=== PATIENT | male | born 1945 | race Caucasian/White ===

== ENCOUNTER 2018-11-05 13:17 | Inpatient (IN) | payer MEDICARE, BC ==
--- NOTE | 2018-11-05 14:00 | ED ---
Respiratory - HPI Summary HPI Summary: This patient is a 73 year old M presenting to [facility] with a chief complaint of cold symptoms since 10/31/18. Patient reports body aches, difficulty sleeping, productive cough with yellow mucous, sneezing, dyspnea, LE aching, and subjective fever. Patient denies CP and LE swelling. Per the triage note, the patient rates the pain 2/10 in severity. He has not had a flu shot this year. No PMHx of asthma. He has not smoked for decades and is retired. He is not on any medications. PCP is Dr. River Bruner. - History of Current Complaint Chief Complaint: EDUpperRespComplaint Stated Complaint: CHEST CONGESTION PER PT Time Seen by Provider: 11/05/18 13:33 Hx Obtained From: Patient Onset/Duration: Sudden Onset, Lasting Days, Still Present Current Severity: Mild Pain Intensity: 2 Character: Cough (Productive), Dyspnea at Rest Sputum Color: Yellow Associated Signs and Symptoms: Fever - Subjective, Chest Pain - Denies, Edema - Denies, Dyspnea - Allergy/Home Medications Allergies/Adverse Reactions: Allergies Allergy/AdvReac Type Severity Reaction Status Date / Time No Known Allergies Allergy Verified 11/05/18 13:19 Home Medications: Home Medications Elderberry Fruit and Flower [Black Elderberry 575 mg] 1 cap PO DAILY 11/05/18 [ History Confirmed 11/05/18] Garlic [Odor Free Garlic-X] 1 tab PO DAILY 11/05/18 [History Confirmed 11/05/18] Multivitamins/Minerals TAB* [Theragran/minerals TAB*] 1 tab PO DAILY 11/05/18 [ History Confirmed 11/05/18] Vitamin B Complex CAP* [B Complex CAP*] 1 cap PO DAILY 11/05/18 [History Confirmed 11/05/18] Zinc 25 mg PO DAILY 11/05/18 [History Confirmed 11/05/18] PMH/Surg Hx/FS Hx/Imm Hx Respiratory History: Denies: Hx Asthma Musculoskeletal History: Reports: Other Musculoskeletal History - Carpal tunnel - Surgical History Surgery Procedure, Year, and Place: N/A Infectious Disease History: No Infectious Disease History: Denies: Traveled Outside the [place] in Last 30 Days - Family History Known Family History: Positive: Cardiac Disease, Diabetes - Social History Occupation: Retired Alcohol Use: None Substance Use Type: Reports: None Smoking Status (MU): Former Smoker Review of Systems Positive: Fever, Other - Difficulty sleeping. Negative: Chills Negative: Erythema Negative: Sore Throat Negative: Chest Pain Positive: Cough - Productive yellow mucous, Other - Sneezing, dyspnea. Negative : Shortness Of Breath Negative: Abdominal Pain, Vomiting, Nausea Negative: dysuria, hematuria Positive: Other - Body aches, LE aching. Negative: Myalgia, Edema Negative: Rash Neurological: Other - Denies dizziness All Other Systems Reviewed And Are Negative: Yes Physical Exam - Summary Physical Exam Summary: Constitutional: Well-developed, Well-nourished, Alert. (-) Distressed Skin: Warm, Dry HENT: Normocephalic; Atraumatic Eyes: Conjunctiva normal Neck: Musculoskeletal ROM normal neck. (-) JVD, (-) Stridor, (-) Tracheal deviation Cardio: Rhythm regular, rate normal, Heart sounds normal; Intact distal pulses; The pedal pulses are 2+ and symmetric. Radial pulses are 2+ and symmetric. (-) Murmur Pulmonary/Chest wall: Grossly diminished breath sounds with scattered rhonchi. ( -) Respiratory distress, (-) Wheezes, (-) Rales Abd: Soft, (-) tenderness, (-) Distension, (-) Guarding, (-) Rebound Musculoskeletal: (-) Edema Lymph: (-) Cervical adenopathy Neuro: Alert, Oriented x3 Psych: Mood and affect Normal Triage Information Reviewed: Yes Vital Signs On Initial Exam: Initial Vitals Temp Pulse Resp BP Pulse Ox 99.1 F 88 20 121/82 90 11/05/18 13:20 11/05/18 13:20 11/05/18 13:20 11/05/18 13:20 11/05/18 13:20 Vital Signs Reviewed: Yes Diagnostics - Vital Signs Vital Signs Temp Pulse Resp BP Pulse Ox 11/05/18 13:20 99.1 F 88 20 121/82 90 - Laboratory Result Diagrams: 11/05/18 13:45 11/05/18 13:45 Lab Statement: Any lab studies that have been ordered have been reviewed, and results considered in the medical decision making process. - Radiology Chest X-Ray Radiology Interpretation Completed By: Radiologist Summary of Radiographic Findings: 14:06 - LEFT LOWER LUNG CONSOLIDATION. RECOMMEND FOLLOW-UP UNTIL RESOLUTION TO EXCLUDE. UNDERLYING PULMONARY PARENCHYMAL PATHOLOGY. ED Physician has reviewed this imaging report. - EKG 13:58 Cardiac Rate: NL - 89 BPM EKG Rhythm: Sinus Rhythm Summary of EKG Findings: No STEMI Re-Evaluation - Re-Evaluation 1 Re-Evaluation Time: 15:22 Change: Unchanged Comment: No change. Patient is still at 90% O2 while on 2 L O2. Disposition - Diagnoses Provider Diagnoses: PNA (pneumonia), Sepsis, Hypoxemia - Critical Care Time Critical Care Time: 30-74 min - 35 mins Discharge - Sign-Out/Discharge Documenting (check all that apply): Patient Departure - D/C home Patient Received Moderate/Deep Sedation with Procedure: No - Discharge Plan Condition: Stable Disposition: ADMITTED TO [facility] Referrals: Zohreh MARTINEZ,River Gale [Primary Care Provider] - - Attestation Statements Document Initiated by Scribe: Yes Documenting Scribe: Joseph Cordoba Provider For Whom Scribe is Documenting (Include Credential): Dav Barber MD Scribe Attestation: Joseph Diallo, scribed for Dav Barber MD on 11/05/18 at 1535. Status of Scribe Document: Ready
[2018-11-05] MEDS ORDERED: methylPREDNISolone 125 MG* 2 ML VIAL IV ONE (14:13)
[2018-11-05] MEDS ORDERED: Albuterol/Ipratropium NEB.SOL* Albuterol 2.5 MG/Ipratropium 0.5 MG 3 ML INH ONE (14:13)
[2018-11-05 14:15] LABS: ABS Lymphocytes 0.8 10^3/ul (1.0-4.8); ABS Monocytes 0.7 10^3/ul (0-0.8); ABS Neutrophils 6.2 10^3/ul (1.5-7.7); Hematocrit 43 % (42-52); Hemoglobin 14.6 g/dL (14.0-18.0); Lymphocyte % 10.6 %; Mean Corpuscular HGB Conc 34 g/dL (31-36); Mean Corpuscular Hemoglobin 31 pg (27-31); Mean Corpuscular Volume 92 fL (80-94); Mean Platelet Volume 8.5 fL (7.4-10.4); Nucleated Red Blood Cells % 0.1; Platelet Count 165 10^3/uL (150-450); Red Blood Count 4.68 10^6 /uL (4.18-5.48); Red Cell Distribution Width 13 % (10.5-15); White Blood Count 7.7 10^3/uL (3.5-10.8)
[2018-11-05] MEDS ORDERED: cefTRIAXone(*) 1 GM in NS 0.9% 50 ML* 50 ML IVPB ONE (14:23)
[2018-11-05 14:24] LABS: INR 1.33 (0.82-1.09)
[2018-11-05 14:32] LABS: Troponin I 0.02 ng/mL (<0.04)
[2018-11-05 14:41] LABS: Albumin 4.1 g/dL (3.2-5.2); Albumin/Globulin Ratio 1.2 (1-3); BUN/Creatinine Ratio 21.7 (8-20); Calcium 10.6 mg/dL (8.6-10.3); EGFR African American 75.9 (>60); EGFR Non-African American 62.7 (>60); Globulin 3.3 g/dL (2-4); Potassium 4.3 mmol/L (3.5-5.0); Total Bilirubin 0.7 mg/dL (0.2-1.0); Total Protein 7.4 g/dL (6.4-8.9)
[2018-11-05 14:47] LABS: Influenza A Molecular NEGATIVE (Negative); Influenza B Molecular NEGATIVE (Negative)
[2018-11-05] MEDS ORDERED: NS 0.9% 1000 ML** 2,000 ML IV ONE (16:43)
[2018-11-05] MEDS ORDERED: Azithromycin 500 mg/250 ml NS 500 MG/250 ML BAG IVPB ONE (16:43)
[2018-11-05] MEDS ORDERED: Albuterol 2.5 MG/3 ML NEB.SOL* (0.083%) INH PRN (16:48)
[2018-11-05] MEDS ORDERED: Acetaminophen TAB* 325 MG PO PRN (16:48)
[2018-11-05] MEDS ORDERED: Iohexol 350* (CONTRAST) 500 ML MDV IV ONE (16:52)
[2018-11-05] MEDS: Enoxaparin(*) 40 MG/0.4 ML SYR SUBCUT SCH (21:39)
[2018-11-05] MEDS: NS 0.9% 1000 ML** 1,000 ML IV SCH (21:39)
[2018-11-05 22:05] LABS: Urine Appearance Clear; Urine Bilirubin Negative (Negative); Urine Blood Negative (Negative); Urine Color Yellow; Urine Glucose 1+(50 mg/dL) (Negative); Urine Ketones Negative (Negative); Urine Nitrite Negative (Negative); Urine Protein Negative (Negative); Urine Specific Gravity 1.016 (1.010-1.030); Urine Urobilinogen Negative (Negative)
--- NOTE | 2018-11-06 01:27 | PN ---
Progress Note - Progress Note Date of Service: 11/06/18 Note: pt's urine positive for strep pneumo antigen. will cont current antibiotics for now
--- NOTE | 2018-11-06 02:08 | HP ---
CC: Dr. River Bruner.* HISTORY AND PHYSICAL: DATE OF ADMISSION: 11/05/18 PROVIDER: Laya Hines NP PRIMARY CARE PROVIDER: Dr. River Bruner. ATTENDING PHYSICIAN WHILE IN THE HOSPITAL: Janelle Hernandez DO * (dictated by Laya Hines NP) CHIEF COMPLAINT: Cough and shortness of breath. HISTORY OF PRESENT ILLNESS: Mr. Santana is a 73-year-old male with no significant past medical history other than hepatitis C, which was treated and resolved, who reports that he started coughing on Thursday. On Thursday, he developed fevers and felt weak. He reports that he has had a productive cough with yellow secretions. The patient reports that he became progressively more short of breath and his cough became worse. So, he went to the Urgent Care today and was found to have a room air O2 saturation of 85%. So, he was sent to the emergency room for further evaluation. The patient does report fevers. He denies any intended weight loss. He does complain of chest feeling tight with taking deep breaths. Denies any edema. Does report cough. Denies any hemoptysis. He does report shortness of breath, progressively worse with exertion. Denies any nausea, vomiting, diarrhea, abdominal pain, hematuria, dysuria, focal weakness, or sensory loss. Denies any visual complaints. Denies any dysphagia, arthralgias. He does report muscle and joint aches and feeling weak and fatigued. Denies any rashes, lesions, psychosis, or anxiety. Due to his hypoxia and chest x-ray consistent with pneumonia, we were asked to see and evaluate the patient for admission. PAST MEDICAL HISTORY: History of hepatitis C, did receive treatment. PAST SURGICAL HISTORY: 1. Carpal tunnel release. 2. Tonsillectomy. MEDICATIONS: None. ALLERGIES: No known drug allergies. FAMILY HISTORY: Reviewed and noncontributory. SOCIAL HISTORY: The patient quit smoking approximately 40 years ago. Prior to that, he smoked a pack a day for approximately 10 years. He denies any alcohol or illicit drug use. He is . He lives with his . Surrogate decision maker in the event he is unable to make his own decisions is his . He is a full code. REVIEW OF SYSTEMS: A 11-point review of systems was completed. All pertinent positives were mentioned in the HPI, others were negative. PHYSICAL EXAMINATION GENERAL: At this time, Mr. Santana is a 73-year-old male, he is resting on a stretcher in the emergency room, he does not appear to be in any acute distress. VITAL SIGNS: Blood pressure 119/83, heart rate is 98, respirations are 24, O2 saturation 91% on 4 L nasal cannula, temperature is 99.1. HEENT: Head is atraumatic, normocephalic. Eyes: EOMs are intact. Sclerae anicteric and not pale. Oral mucosa appeared to be moist. NECK: Supple. LUNGS: Very diminished throughout bilaterally. CARDIAC: S1, S2. Regular rate and rhythm. No murmurs, rubs, or gallops. ABDOMEN: Soft and nontender. Bowel sounds are present x4. EXTREMITIES: He can move all 4 extremities with 5/5 strength. Pedal pulses are +2 bilaterally. There is no clubbing or cyanosis. NEUROLOGIC: He is awake, alert, oriented x3. His speech is clear. Thought process is intact. There are no gross focal deficits. Cranial nerves II through XII are grossly intact. PSYCH: The patient is alert and oriented x4. He is calm and cooperative. SKIN: Intact. LABORATORY DATA AND DIAGNOSTIC STUDIES: WBCs were 7.7, RBCs 4.68, hemoglobin 14.6, hematocrit was 43, platelet count was 165. INR was 1.33. APTT was 33.0. ABG: pH was 7.48, pCO2 was 32, pO2 was 69. HCO3 was 25.5. Oxygen saturation was 95.1. Sodium 128, potassium 4.3, chloride 95, carbon dioxide was 25, anion gap was 8, BUN was 25, creatinine 1.15, glucose was 108. Lactic acid was 1.4 and 1.11. Calcium 10.6. ASTs were 22, ALTs were 14. Urine was within normal limits except for +1 glucose. Flu A and B were negative. He had a chest x-ray, radiologist's impression: Left lower lobe consolidation, recommend followup until resolution. He had an electrocardiogram, which showed sinus rhythm at a rate of 89. His CTA of the chest, radiologist's impression: No pulmonary embolism, no dissection or aneurysm in the chest, dependent consolidation in both lower lobes suggesting pneumonia or aspiration, limited calcification or pleural plaque, no other acute disease seen. ASSESSMENT AND PLAN: Mr. Santana is a 73-year-old male with no significant past medical history, who presented to the emergency room with complaints of shortness of breath, cough, and fevers, who was found to have bilateral pneumonia. He will be admitted inpatient for: 1. He meets sepsis criteria. I suspect this is related to underlying pneumonia. His sepsis criteria is met by tachypnea and tachycardia with a known source of pneumonia. He did have blood cultures in the emergency room. He did receive a fluid bolus. I will continue him on normal saline at 100 cc per hour. He will have azithromycin and ceftriaxone IV. He also received Solu- Medrol 125 mg in the emergency room. I will continue with albuterol nebs as needed for shortness of breath. 2. Acute hypoxemic respiratory failure. I suspect this is related to underlying pneumonia. The patient will continue on oxygen support to maintain O2 saturations greater than 92%. I will continue him on azithromycin and ceftriaxone. Blood cultures are currently pending. I will send urine for Legionella and Strep pneumoniae. He will be monitored on telemetry. 3. Hyponatremia. I suspect his hyponatremia is related to dehydration. He did receive normal saline bolus in the emergency room. I will repeat a BMP in the a.m. 4. FEN. He can have a regular diet. 5. Code status. He is a full code. 6. DVT prophylaxis. I will place him on Lovenox subcu. TIME SPENT: Time spent on this admission was approximately 60 minutes, greater than half that time was spent at the bedside reviewing events leading thus far to his hospitalization, performing physical exam, and reviewing my plan of care. I have discussed this with my attending, Dr. Janelle Hernandez; she is in agreement with my plan. LAYA HINES, TEST ENGINE OPERATOR [id number]/[facility] #: [id number] JONATAN
[2018-11-06] MEDS: Multivitamins/Minerals TAB PO SCH (07:54)
[2018-11-06] MEDS: NS 0.9% 1000 ML** 1,000 ML IV SCH ×2 (07:56→19:31)
[2018-11-06 08:53] LABS: ABS Lymphocytes 0.5 10^3/ul (1.0-4.8); ABS Monocytes 0.6 10^3/ul (0-0.8); ABS Neutrophils 6.7 10^3/ul (1.5-7.7); Hematocrit 36 % (42-52); Hemoglobin 12.2 g/dL (14.0-18.0); Lymphocyte % 6.6 %; Mean Corpuscular HGB Conc 33 g/dL (31-36); Mean Corpuscular Hemoglobin 31 pg (27-31); Mean Corpuscular Volume 93 fL (80-94); Mean Platelet Volume 8.8 fL (7.4-10.4); Platelet Count 161 10^3/uL (150-450); Red Blood Count 3.93 10^6 /uL (4.18-5.48); Red Cell Distribution Width 13 % (10.5-15); White Blood Count 7.8 10^3/uL (3.5-10.8)
[2018-11-06 09:03] LABS: BUN/Creatinine Ratio 20.9 (8-20); Calcium 9.7 mg/dL (8.6-10.3); EGFR African American 99.4 (>60); EGFR Non-African American 82.1 (>60); Potassium 4.5 mmol/L (3.5-5.0)
--- NOTE | 2018-11-06 14:08 | PN ---
Subjective Date of Service: 11/06/18 Interval History: Pt seen and examined. Meds and labs reviewed. CC: N/A ROS: Denied MCCAULEY/dizziness, F/C, N/V, CP, SOB, increased cough, sputum production , abd pain, diarrhea, constipation, dysuria, myalgias, arthralgias, throat pain , and new skin lesions. The rest of the 14 point ROS are unremarkable. PHYSICAL EXAM: GEN APPEARANCE: Awake, not in acute distress HEENT: NC/AT, PERRLA, moist oral mucosa, (-) throat erythema NECK: Soft, supple, (-) cervical LAD, (-)JVD HEART: S1S2 WNL, RRR, No MRG CHEST: CTA, BL, GAE, No W/R/R ABD: Soft, ND/NT, NABS 4x Q EXT: No C/C/E SKIN: Warm to touch PSYCH: No active psychosis, hallucinations, depression, SI/HI Objective Active Medications: Acetaminophen (Tylenol Tab*) 650 mg PO Q4H PRN PRN Reason: FEVER/PAIN Albuterol (Ventolin 2.5 Mg/3 Ml Neb.Katie*) 2.5 mg INH [id number] AWAKE PRN PRN Reason: sob/wheezing Enoxaparin Sodium (Lovenox(*)) 40 mg SUBCUT Q24H [facility] Last Admin: 11/05/18 21:39 Dose: 40 mg Sodium Chloride (Ns 0.9% 1000 Ml) 1,000 mls @ 100 mls/hr IV PER RATE [facility] Last Admin: 11/06/18 07:56 Dose: 100 mls/hr Azithromycin (Zithromax 500 Mg/250 Ml) 500 mg in 250 mls @ 250 mls/hr IVPB Q24H [facility] Ceftriaxone Sodium 1 gm/ (Sodium Chloride) 50 mls @ 200 mls/hr IVPB Q24H [facility] Multivitamins/Minerals (Theragran/Minerals Tab*) 1 tab PO DAILY [facility] Last Admin: 11/06/18 07:54 Dose: 1 tab Vital Signs - 8 hr 11/06/18 11/06/18 11/06/18 08:00 08:06 08:15 Temperature 97.5 F Pulse Rate 69 Respiratory 20 20 Rate Blood Pressure 117/67 (mmHg) O2 Sat by Pulse 94 94 Oximetry 11/06/18 12:10 Temperature 97.6 F Pulse Rate 65 Respiratory 20 Rate Blood Pressure 106/66 (mmHg) O2 Sat by Pulse 97 Oximetry Oxygen Devices in Use Now: Nasal Cannula Result Diagrams: 11/06/18 08:14 11/06/18 08:14 Microbiology and Other Data: Microbiology 11/05/18 21:50 Legionella Urinary Antigen - Final Urine Negative Legionella Antigen Streptococcus pneumoniae Ag Screen - Final Positive S. Pneumo Antigen Assess/Plan/Problems-Billing Assessment: - Patient Problems (1) CAP (community acquired pneumonia) Current Visit: Yes Status: Acute Code(s): J18.9 - PNEUMONIA, UNSPECIFIED ORGANISM SNOMED Code(s): 772949994 Comment: -With sepsis, sepsis resolved -Urine Ag: (+) S. pneumoniae -Blood cultures pending -Continue Rocephin and Azithromycin for now and if cultures remain negative by tomorrow, consider narrowing to 3rd gen monotherapy---awaiting C&S results (2) Hyponatremia Current Visit: Yes Status: Acute Code(s): E87.1 - HYPO-OSMOLALITY AND HYPONATREMIA SNOMED Code(s): 46699518 Comment: -Resolved -Likely due to SIADH due to above -Continue watchful waiting (3) DVT prophylaxis Current Visit: Yes Status: Acute Code(s): Z29.9 - ENCOUNTER FOR PROPHYLACTIC MEASURES, UNSPECIFIED SNOMED Code(s): 002884148 Comment: -Continue Lovenox SQ Status and Disposition: -Awaiting PT eval
[2018-11-06] MEDS: cefTRIAXone(*) 1 GM in NS 0.9% 50 ML* 50 ML IVPB SCH (14:13)
[2018-11-06] MEDS: Enoxaparin(*) 40 MG/0.4 ML SYR SUBCUT SCH (16:52)
[2018-11-06] MEDS ORDERED: Azithromycin 500 mg/250 ml NS 500 MG/250 ML BAG IVPB SCH (17:00)
[2018-11-07] MEDS: NS 0.9% 1000 ML** 1,000 ML IV SCH ×2 (06:38→17:18)
[2018-11-07 07:21] LABS: Hematocrit 34 % (42-52); Hemoglobin 11.3 g/dL (14.0-18.0); Mean Corpuscular HGB Conc 34 g/dL (31-36); Mean Corpuscular Hemoglobin 31 pg (27-31); Mean Corpuscular Volume 93 fL (80-94); Mean Platelet Volume 9.1 fL (7.4-10.4); Platelet Count 186 10^3/uL (150-450); Red Blood Count 3.63 10^6 /uL (4.18-5.48); Red Cell Distribution Width 13 % (10.5-15); White Blood Count 9.8 10^3/uL (3.5-10.8)
[2018-11-07 07:31] LABS: Albumin/Globulin Ratio 1.2 (1-3); BUN/Creatinine Ratio 20.8 (8-20); Calcium 9.3 mg/dL (8.6-10.3); EGFR African American 88.1 (>60); EGFR Non-African American 72.8 (>60); Globulin 2.5 g/dL (2-4); Magnesium 2.1 mg/dL (1.9-2.7); Phosphorus 1.6 mg/dL (2.5-5.0); Potassium 4.3 mmol/L (3.5-5.0); Total Bilirubin 0.4 mg/dL (0.2-1.0); Total Protein 5.5 g/dL (6.4-8.9)
[2018-11-07] MEDS: Multivitamins/Minerals TAB PO SCH (08:02)
[2018-11-07] MEDS ORDERED: Sodium Phosphate INJ* 15 MMOLE in NS 0.9% 250 ML* 250 ML IVPB ONE (09:00)
[2018-11-07] MEDS ORDERED: predniSONE TAB* 20 MG PO ONE (12:00)
[2018-11-07] MEDS ORDERED: Albuterol/Ipratropium NEB.SOL* Albuterol 2.5 MG/Ipratropium 0.5 MG 3 ML INH SCH (13:00)
[2018-11-07] MEDS ORDERED: Albuterol/Ipratropium NEB.SOL* Albuterol 2.5 MG/Ipratropium 0.5 MG 3 ML INH PRN (13:52)
--- NOTE | 2018-11-07 15:10 | PN ---
Subjective Date of Service: 11/07/18 Interval History: Pt seen and examined. Meds and labs reviewed. Pt underwent ambulatory sats on RA but desaturated to 84% and felt nervous and unwell after. Mentions also sick today and afraid to go home on Thursday. CC: Still feels ill on exertion ROS: Denied MCCAULEY/dizziness, F/C, N/V, CP, SOB, increased cough, sputum production , abd pain, diarrhea, constipation, dysuria, myalgias, arthralgias, throat pain , and new skin lesions. The rest of the 14 point ROS are unremarkable. PHYSICAL EXAM: GEN APPEARANCE: Awake, not in acute distress HEENT: NC/AT, PERRLA, moist oral mucosa, (-) throat erythema NECK: Soft, supple, (-) cervical LAD, (-)JVD HEART: S1S2 WNL, RRR, No MRG CHEST: CTA, BL, GAE, No W/R/R ABD: Soft, ND/NT, NABS 4x Q EXT: No C/C/E SKIN: Warm to touch PSYCH: No active psychosis, hallucinations, depression, SI/HI Objective Active Medications: Acetaminophen (Tylenol Tab*) 650 mg PO Q4H PRN PRN Reason: FEVER/PAIN Albuterol (Ventolin 2.5 Mg/3 Ml Neb.Katie*) 2.5 mg INH [id number] AWAKE PRN PRN Reason: sob/wheezing Albuterol/Ipratropium (Duoneb (Albuterol 2.5 Mg/Ipratropium 0.5 Mg)) 1 neb INH Q4H PRN PRN Reason: SOB/WHEEZING Enoxaparin Sodium (Lovenox(*)) 40 mg SUBCUT Q24H [facility] Last Admin: 11/06/18 16:52 Dose: 40 mg Sodium Chloride (Ns 0.9% 1000 Ml) 1,000 mls @ 100 mls/hr IV PER RATE [facility] Last Admin: 11/07/18 06:38 Dose: 100 mls/hr Ceftriaxone Sodium 1 gm/ (Sodium Chloride) 50 mls @ 200 mls/hr IVPB Q24H [facility] Last Admin: 11/06/18 14:13 Dose: 200 mls/hr Multivitamins/Minerals (Theragran/Minerals Tab*) 1 tab PO DAILY [facility] Last Admin: 11/07/18 08:02 Dose: 1 tab Prednisone (Deltasone Tab*) 30 mg PO ONCE ONE Stop: 11/08/18 07:01 Vital Signs - 8 hr 11/07/18 11/07/18 11/07/18 07:36 08:00 08:03 Temperature 97.5 F Pulse Rate 51 Respiratory 16 16 Rate Blood Pressure 98/64 100/60 (mmHg) O2 Sat by Pulse 99 99 Oximetry 11/07/18 11:58 Temperature 97.4 F Pulse Rate 61 Respiratory 18 Rate Blood Pressure 100/60 (mmHg) O2 Sat by Pulse 99 Oximetry Oxygen Devices in Use Now: Nasal Cannula Result Diagrams: 11/07/18 06:53 11/07/18 06:53 Microbiology and Other Data: Microbiology 11/05/18 21:50 Legionella Urinary Antigen - Final Urine Negative Legionella Antigen Streptococcus pneumoniae Ag Screen - Final Positive S. Pneumo Antigen Assess/Plan/Problems-Billing Assessment: - Patient Problems (1) CAP (community acquired pneumonia) Current Visit: Yes Status: Acute Code(s): J18.9 - PNEUMONIA, UNSPECIFIED ORGANISM SNOMED Code(s): 751983780 Comment: -With sepsis, sepsis resolved; presenting qSOFA =2 -Urine Ag: (+) S. pneumoniae -Blood cultures (-)x2 days -D/C Azithromycin and Continue on Rocephin -Given mild to moderate sepsis on admission and pt still feeling ill on ambulation and significant desaturation, will add Prednisone rapid taper (2) Hyponatremia Current Visit: Yes Status: Acute Code(s): E87.1 - HYPO-OSMOLALITY AND HYPONATREMIA SNOMED Code(s): 20481929 Comment: -Resolved -Likely due to SIADH due to above -Continue watchful waiting (3) DVT prophylaxis Current Visit: Yes Status: Acute Code(s): Z29.9 - ENCOUNTER FOR PROPHYLACTIC MEASURES, UNSPECIFIED SNOMED Code(s): 094908386 Comment: -Continue Lovenox SQ Status and Disposition: -For D/C home in AM -For repeat ambulatory sats in AM
[2018-11-07] MEDS: cefTRIAXone(*) 1 GM in NS 0.9% 50 ML* 50 ML IVPB SCH (16:16)
[2018-11-07] MEDS: Enoxaparin(*) 40 MG/0.4 ML SYR SUBCUT SCH (16:18)
[2018-11-08] MEDS: NS 0.9% 1000 ML** 1,000 ML IV SCH (03:53)
[2018-11-08] MEDS ORDERED: predniSONE TAB* 10 MG PO ONE (07:00)
[2018-11-08] MEDS: Multivitamins/Minerals TAB PO SCH (08:10)
[2018-11-08] MEDS ORDERED: Sodium Phosphate INJ* 15 MMOLE in NS 0.9% 250 ML* 250 ML IVPB ONE (08:59)
[2018-11-08] MEDS ORDERED: Potassium & Sodium Phos 250MG* = 1 PACKET PO STA (10:31)
[2018-11-08 11:20] VITALS: BP 116/63
[2018-11-08] MEDS: cefTRIAXone(*) 1 GM in NS 0.9% 50 ML* 50 ML IVPB SCH (14:19)
[2018-11-08] MEDS ORDERED: Potassium & Sodium Phos 250MG* = 1 PACKET PO ONE (15:00)
--- NOTE | 2018-11-08 16:41 | DS ---
CC: Dr. Qi Acevedo; Dr. Dav Barber; Dr. River Bruner * DISCHARGE SUMMARY: DATE OF ADMISSION: DATE OF DISCHARGE: 11/08/18 DISCHARGE CONDITION: Stable. DISCHARGE DISPOSITION: Home. DISCHARGE DIAGNOSES: As follows: 1. Community-acquired pneumonia with apra-rv-sapotngp sepsis, qSOFA equals 2 on presentation; sepsis resolved; the patient positive for urinary strep pneumonia antigen. 2. Hyponatremia, likely due to transient SIADH due to above, refilled. 3. Hypophosphatemia, corrected. DISCHARGE MEDICATIONS: As follows: 1. Tylenol 650 mg p.o. q.6 p.r.n. 2. Multivitamins 1 tab p.o. daily. 3. Cefdinir 300 mg p.o. b.i.d. for 7 days. 4. Elderberry fruit and flower 1 cap p.o. daily. 5. Garlic 1 cap p.o. daily. 6. Floranex tabs 2 tabs p.o. daily. 7. Zinc 25 mg p.o. daily. HISTORY OF PRESENT ILLNESS/HOSPITAL COURSE: The patient is a 73-year-old gentleman with history of hepatitis C, who supposedly received treatment, unclear whether the patient has obtained SVR, who was admitted for cough and shortness of breath back on 11/05/18 with community-acquired pneumonia with [id number]-[id number] sepsis. He was placed on Rocephin and azithromycin, and his urine antigen was found to be positive for Strep pneumoniae. However, his blood cultures remained negative on discharge with blood cultures being negative for 2 days. The patient's regimen has been narrowed to third-generation cephalosporin and will be discharged on p.o. cefdinir. He had an initial ambulatory saturation test done the day prior to his discharge and he felt unwell after walking and required at least 4 L of O2. Today, an ambulatory saturation was repeated and mentioned that he is doing well at 2 L and feels safe to go home today and hence will be discharged. The patient has been advised to follow up and call with PCP within 3 days post discharge and on his followup with his PCP, he was asked to enquire as to finalize culture results to make sure that no other organism were reported prior to his discharge given his urine culture has not yet been finalized which remains the possibility, however, remote. The patient is aware of this. He was advised that if his symptoms resume or develop new ones or feel unwell for any reasons to call his PCP first. If his PCP cannot entertain him due to scheduling issues alone, he was advised to call [facility] if the issue is considered nonemergent. He was advised to call my office regarding any questions, concerns, or further clarifications regarding his discharge plans and/or prescription and to take his medications as prescribed. REVIEW OF SYSTEMS: The patient denied any recent headaches, dizziness, fevers, chills, nausea, vomiting, chest pain, shortness of breath, increased coughing or sputum production, abdominal pain, diarrhea, constipation, pain and/or increased frequency on urination, myalgias, arthralgias, throat pain or new skin lesions. The rest of the 14-point review of systems are otherwise unremarkable. PHYSICAL EXAMINATION: Shows the most recent vital signs of record with blood pressure of 116/63, 67 beats per minute heart rate, 18 per minute respiratory rate, saturating at 92% on room air, 97.8 degrees Fahrenheit temperature. General Appearance: The patient is awake, alert and oriented x4, not in acute distress. HEENT: Normocephalic, atraumatic. PERRLA. Extraocular muscles intact. Negative for icterus. Moist oral mucosa. Negative throat erythema. Neck is soft, supple with no cervical lymphadenopathy, no JVD. Heart: S1 and S2 within normal limits. Regular rate and rhythm. No murmurs, rubs or gallops. Chest: Clear to auscultation bilaterally. Good air entry. No wheezes, rales or rhonchi. Abdomen is soft, nondistended, nontender. Normoactive bowel sounds x4 quadrants. Extremities: No cyanosis, clubbing or edema. Psychiatric: No active psychosis, depression, suicidal or homicidal ideation. Skin is warm to touch. TIME SPENT: Total time spent evaluating the patient, reviewing pertinent data and appropriate documentation is 45 minutes. [id number]/[facility] #: [id number] MTDD
== END 2018-11-08 15:00 | disposition home or self-care (01) | DRG 871 ==
LOC: ED 13:17 → MED 16:48
PROVIDERS: ADMIT Internal Medicine; ATTEND Student in an Organized Health Care Education/Training Program
DX: A41.9 Sepsis, unspecified organism (principal); J18.9 Pneumonia, unspecified organism; J96.01 Acute respiratory failure with hypoxia; E86.0 Dehydration; B95.3 Streptococcus pneumoniae as the cause of diseases classified elsewhere; E83.39 Other disorders of phosphorus metabolism; E22.2 Syndrome of inappropriate secretion of antidiuretic hormone; Z83.3 Family history of diabetes mellitus; Z82.49 Family history of ischemic heart disease and other diseases of the circulatory system; Z87.891 Personal history of nicotine dependence; Z86.19 Personal history of other infectious and parasitic diseases
CPT/HCPCS: 36415; 71045; 71275; 80048; 80053; 81003; 82803; 83605; 83735; 84100; 84484; 85025; 85027; 85610; 85730; 87040; 87899; 93005; 99283; A9270-GY; G8978-GP-CI; G8979-GP-CI; G8980-GP-CI; J0456; J0696; J1650; J2930; J7512; Q9967